=== PATIENT | male | born 1975 | race Caucasian/White ===

== ENCOUNTER 2016-09-12 23:48 | Emergency (ER) | payer OTHER ==
[~2016-09-12] VITALS: Ht 177.8 cm; Wt 72.7 kg
[2016-09-12 23:50] VITALS: BP 128/82; PULSE 85; RESP 14; O2SAT 99
--- NOTE | 2016-09-13 00:15 | ED.REPORT ---
HPI-Hand Prob/Inj Date of Service Sep 13, 2016 ED Provider: Naresh Hay MD A healthy 41 year old male presents to the ED with a left fifth finger injury onset 23:15 while at work. The patient was removing a bolt when his hand slipped off the wrench and his fifth finger was crushed between the wrench and a piece of metal. He presents with a laceration to the affected finger. The patient denies numbness, tingling, or other symptoms. Nursing Notes Stated Complaint: CUT FINGER ON LEFT HAND Chief Complaint: Extremity Trauma Nursing Notes Reviewed: Yes Allergies: Coded Allergies: No Known Allergies (Unverified , 09/12/16) General Time Seen by Provider: 00:13 Chief Complaint Finger injury left Hx Obtained From: Patient Arrived By: Walk-in Onset Occurred: 1 - 4 hours ago Context of Onset: Workplace Symptom Duration: Since onset Caused by: Accidental, Crushing injury Location: Left Hand: : Proximal phalanx... (Little) Quality: Painful Severity: Current: Moderate Severity: Maximum: Moderate Associated with: Denies: Neuro symptoms pre-arriv, Numbness Pertinent Negative: Relieved by nothing Immunizations: Tetanus w/in 5 - 10 yrs Recent Healthcare: No recent doctor visit Past Medical History Past Medical History None reported Past Surgical History None reported Smoking History Unknown if Ever Smoker Social History Alcohol Use: "Social" Occupation Works for [employer] Status Independent Review of Systems Review of Systems Note: + Left fifth finger laceration - Tingling Constitutional: Denies: Fever Musculoskeletal: Reports: Extremity pain (Left fifth finger) Neurologic: Denies: Numbness Complete sys rev & neg: except as marked. Respiratory: Denies: Non-productive cough, Shortness of breath GI: Denies: Diarrhea, Vomiting Physical Exam Initial Vital Signs Vital Signs (First) Date Time Temp Pulse Resp B/P Pulse Ox O2 Delivery O2 Flow Rate FiO2 09/12/16 23:50 36.6 85 14 128/82 99 Room Air Initial VS: Reviewed, Vital signs normal Head / Eyes: Atraumatic, Normocephalic ENT: Conjunctiva normal, No scleral icterus Neck: Supple, Full range of motion Skin: Warm, Dry, No cyanosis Neurologic: Alert, Oriented, Nonfocal Psychiatric: Mood/affect normal, Behavior normal, Normal thought content Wrist / Hand: Neurologic intact, Vascular intact, Tendon function NL Trauma / Burn / Environmental: Positive: Laceration (Proximal phalanx of left fifth finger, partial thickness with a central portion of full thickness, L- shaped, 2.5cm ) General/Constitutional: Awake, Alert, No acute distress Procedures Laceration Management Time: 00:30 Procedure Performed by: ED physician Consent / Setup / Site Prep: Consent from patient, Time-out performed, Hand hygiene observed, Stand sterile technique Location of Wound: L-shaped wound, 2.5cm long, to proximal phalanx of left fifth finger Local Anesthesia: Lidocaine 1% Wound Preparation: Shurclens, Normal saline Irrigation: Copious (60cc) Repair Skin: ___ O (5), Nylon # Sutures - Skin: 3 Suture Technique: Simple Post-Procedure / Complications: Antibiotic oint applied, Dressing applied, No complications, Condition improved, Tolerated procedure well, Patient stable Re-Eval/Medical Decision Med Decision/Clinical Course 31-year-old male who 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 No complication noted. Repaired without difficulty after thorough cleansing. Re-Evaluation/Progress : Time of Eval: 00:30 Patient Status: Condition improved Re-Evaluation/Progress Note: Laceration management performed. Discussed with patient diagnosis and plan for discharge. Follow-up and return to the ER instructions given. Patient agrees with plan for care and all questions were addressed. Counseled Regarding: Diagnosis, Need for follow-up, When/why to return to ED Discharge & Departure Primary Impression: Laceration of finger Encounter type: initial encounter Qualified Code: S61.219A - Laceration without foreign body of unspecified finger without damage to nail, initial encounter Disposition: Home Discharge Condition All VS Reviewed: Yes Condition: Improved Patient Instructions: Finger Laceration (ED) Additional Instructions: Okay to shower tomorrow. Regular work is okay. You will need your stitches removed in 10 days, you may return to the ER, go to Urgent Care, or visit your regular doctor for this. Follow-up with your primary doctor if there is evidence of infection. Referrals: NOPCP (PCP) Scribe Attestation Portions of this note were transcribed by Monique Escudero. I, Dr. Hay, personally performed the history, physical exam, and medical decision-making; I reviewed and confirmed the accuracy of the information in the transcribed note. Signed by: Doris Mann, 09/13/2016, 02:00 Naresh Hay MD Sep 13, 2016 00:15 MONIQUE ESCUDERO Sep 13, 2016 00:22
== END 2016-09-13 00:58 | disposition home or self-care (01) ==
LOC: SED 23:48
DX: S61.217A Laceration without foreign body of left little finger without damage to nail, initial encounter (principal); W23.0XXA Caught, crushed, jammed, or pinched between moving objects, initial encounter; Y93.89 Activity, other specified; Y92.69 Other specified industrial and construction area as the place of occurrence of the external cause; Y99.0 Civilian activity done for income or pay